=== PATIENT | male | born 1950 | race Two or more races ===

== ENCOUNTER 2018-12-30 20:31 | Inpatient (IN) | payer MEDICARE, MEDICAID ==
[~2018-12-30] VITALS: Ht 172.7 cm; Wt 77.6 kg
--- NOTE | 2018-12-30 20:33 | NUR ---
"[id number] FROM HOME FOR SEIZURE, 5MG VERSED GIVEN, [id number] " PT TO BED 6, PT ON MONITOR, VSS, NAD NOTED, PENDNG MD ROLON
[2018-12-30 20:57] LABS: BASOPHILS % (AUTO) 0.3 % (0.0-2.0); EOSINOPHILS % (AUTO) 0.9 % (0.0-6.0); HEMATOCRIT 42 % (39-51); HEMOGLOBIN 14.3 g/dL (13.5-17.5); LYMPHOCYTES # (AUTO) 0.9 /CMM (0.8-4.8); LYMPHOCYTES % (AUTO) 12.2 % (20.0-44.0); MEAN CORPUSCULAR HGB CONC 34 g/dl (31.0-36.0); MEAN CORPUSCULAR VOLUME 98 fL (80-96); MONOCYTES # (AUTO) 0.5 /CMM (0.1-1.30); MONOCYTES % (AUTO) 7.3 % (2.0-12.0); NEUTROPHILS # (AUTO) 5.8 /CMM (1.8-8.9); NEUTROPHILS % (AUTO) 79.3 % (43.0-81.0); PLATELET COUNT (AUTO) 153 /CMM (150-450); RED BLOOD CELL COUNT(AUTO) 4.26 MIL/uL (4.5-6.0); WHITE BLOOD COUNT (AUTO) 7.3 K/uL (4.3-11.0)
[2018-12-30 21:05] LABS: ALCOHOL, BLOOD < 3 mg/dL (0-0); CALCIUM, SERUM 8.3 mg/dL (8.5-10.1); CARBON DIOXIDE 26 mmol/L (21-32); CHLORIDE 102 mmol/L (98-107); CREATININE 0.9 mg/dL (0.6-1.3); GLUCOSE 135 mg/dL (74-106); SODIUM SERUM 138 mmol/L (136-145); UREA NITROGEN, BLOOD 22 mg/dL (7-18)
[2018-12-30 21:17] LABS: PHENYTOIN (DILANTIN) 10.8 ug/ml (10.0-20.0)
--- NOTE | 2018-12-30 22:05 | NUR ---
PAGED DR. DE LA ROSA
--- NOTE | 2018-12-30 22:22 | NUR ---
BED ASSIGNMENT: 326-1
[2018-12-30] MEDS ORDERED: ACETAMINOPHEN 325 MG TABLET PO PRN (23:00)
[2018-12-30] MEDS ORDERED: MAG HYDROX/AL HYDROX/SIMETH 30 ML UDC PO PRN (23:00)
[2018-12-30] MEDS ORDERED: ZOLPIDEM TARTRATE 5 MG TABLET PO PRN (23:00)
[2018-12-30] MEDS ORDERED: DEXTROSE 50%-WATER 50 ML DISP.SYRIN IV PRN (23:00)
[2018-12-30] MEDS ORDERED: MAGNESIUM HYDROXIDE 30 ML UDC PO PRN (23:00)
[2018-12-30] MEDS ORDERED: ONDANSETRON HCL/PF 4 MG/2 ML VIAL IVP PRN (23:00)
[2018-12-30] MEDS ORDERED: Z GUARD REMEDY 2 OZ OINT TP PRN (23:00)
--- NOTE | 2018-12-30 23:35 | NUR ---
RECEIVED PATIENT FROM ED VIA GURNEY IN STABLE CONDITION. PATIENT ASLEEP BUT EASY TO AROUSE VIA TACTILE AND VERBAL STIMULI. PATIENT ABLE TO VERBALIZED NEEDS HOWEVER DID NOT WANT TO ANSWER ADMISSION QUESTIONS AND STATED HE "JUST WANTED TO SLEEP." PERIPHERAL LINE INTACT AND PATENT. ASPIRATION AND SEIZURE PRECAUTIONS MAINTAINED. BED IN LOW LOCK SETTING. ROOM FREE OF CLUTTER AND BELONGINGS KEPT NEAR BEDSIDE. BED ALARM ON AND FUNCTIONING PROPERLY. WILL CONTINUE TO MONITOR
[2018-12-30 23:40] VITALS: BP 152/60
[2018-12-30] MEDS: IV NS 0.9% 1,000 ML IV PRN (23:59)
--- NOTE | 2018-12-31 | NUR ---
REPORT GIVEN TO STALIN DANGELO FOR AKASH; PT WILL BE TRANSPORTED TO 3RD FLOOR VIA [facility]
[2018-12-31] MEDS: PHENYTOIN EXTENDED RELEASE 100 MG CAPSULE PO SCH ×4 (00:39→21:05)
[2018-12-31] MEDS: LEVETIRACETAM (250 MG) 250 MG TABLET PO SCH ×3 (00:40→21:05)
[2018-12-31] MEDS: ENOXAPARIN SODIUM 40 MG/0.4 ML DISP.SYRIN SQ SCH ×2 (00:40→22:14)
[2018-12-31] MEDS: HYDROCODONE/APAP 5/325MG 1 EACH TABLET PO PRN ×3 (01:09→13:01)
--- NOTE | 2018-12-31 06:30 | NUR ---
CUFF SETTER NOTES PATIENT ASLEEP IN BED WITH NO DISTRESS NOTED. CALL LIGHT WITHIN REACH. ALL DUE MEDS GIVEN ORDERED WITH NO ASE NOTED. NO FURTHER C/O PAIN OR DISCOMFORT. PERIPHERAL LINE INTACT AND PATENT. SEIZURE AND ASPIRATION PRECAUTION OBSERVED AND MAINTAINED AT ALL TIMES. BED IN LOW LOCK SETTING. BED ALARM ON AND FUNCTIONING PROPERLY. WILL ENDORSE TO ONCOMING SHIFT.
[2018-12-31 06:46] LABS: BASOPHILS % (AUTO) 0.3 % (0.0-2.0); EOSINOPHILS % (AUTO) 1.3 % (0.0-6.0); HEMATOCRIT 45 % (39-51); LYMPHOCYTES # (AUTO) 1.8 /CMM (0.8-4.8); LYMPHOCYTES % (AUTO) 23.9 % (20.0-44.0); MEAN CORPUSCULAR HGB CONC 34 g/dl (31.0-36.0); MEAN CORPUSCULAR VOLUME 98 fL (80-96); MONOCYTES # (AUTO) 0.6 /CMM (0.1-1.30); MONOCYTES % (AUTO) 7.7 % (2.0-12.0); NEUTROPHILS # (AUTO) 5.1 /CMM (1.8-8.9); NEUTROPHILS % (AUTO) 66.8 % (43.0-81.0); PLATELET COUNT (AUTO) 158 /CMM (150-450); RED BLOOD CELL COUNT(AUTO) 4.56 MIL/uL (4.5-6.0); WHITE BLOOD COUNT (AUTO) 7.7 K/uL (4.3-11.0)
[2018-12-31 06:50] LABS: CALCIUM, SERUM 8.7 mg/dL (8.5-10.1); CREATININE 0.6 mg/dL (0.6-1.3); MAGNESIUM 1.5 mg/dL (1.8-2.4); PHOSPHORUS 3.6 mg/dL (2.5-4.9); POTASSIUM 3.7 mmol/L (3.5-5.1)
[2018-12-31] MEDS: BLOOD SUGAR DIAGNOSTIC 1 EACH STRIP IN SCH ×4 (07:31→21:05)
--- NOTE | 2018-12-31 07:35 | NUR ---
COVERED BUCKLE ASSEMBLER OPENING NOTES RECEIVED PT IN BED, AWAKE. A/O X2-3. TOLERATING RA, WITH NO ACUTE RESPIRATORY DISTRESS NOTED. ON TELEMONITORING SR WITH HR OF 85 WITH OCCASIONAL PACS. PT COMPLAINED OF PAIN RATED 9/10 AROUND THE NECK AND BACK DURING MORNING ROUNDS. PRN NORCO, GIVEN ORDERED. PER PT NORCO HELPED HIM LAST NIGHT BUT NOT MUCH; WILL CONTINUE TO MONITOR EFFECTIVENESS. IVF NS AT 75ML/HR TO RFA G20, INTACT AND FLUID INFUSING WELL. PT KEPT COMFORTABLE. CALL LIGHT KEPT WITHIN REACH. PT'S BED KEPT IN LOWEST LOCKED POSITION WITH SR X4. ON SEIZURE PRECAUTIONS; PADDED RAILS PRESENT. WILL CONTINUE PLAN OF CARE.
[2018-12-31 07:51] LABS: THYROID STIMULATING HORMONE 1.972 uIU/mL (0.358-3.74)
[2018-12-31] MEDS ORDERED: LEVETIRACETAM (250 MG) 250 MG TABLET PO ONE (09:30)
[2018-12-31 09:44] VITALS: BP 130/80
[2018-12-31] MEDS ORDERED: MORPHINE (09:50)
[2018-12-31] MEDS ORDERED: METOPROLOL TARTRATE (09:50)
[2018-12-31] MEDS ORDERED: GABAPENTIN (09:50)
[2018-12-31] MEDS ORDERED: PROTONIX (09:50)
[2018-12-31] MEDS ORDERED: KEPPRA (09:50)
[2018-12-31] MEDS ORDERED: DILANTIN (09:50)
[2018-12-31] MEDS ORDERED: LIPITOR (09:50)
[2018-12-31] MEDS ORDERED: TRAMADOL (09:50)
[2018-12-31] MEDS: Magnesium 1GM/D5W 100ML PREMIX 100 ML IV SCH ×2 (12:17→13:43)
--- NOTE | 2018-12-31 12:30 | NUR ---
MS RN NOTES PT HAD EEG ORDERED BY PEPPER PICKER/AR. NO PARTIAL RESULT PLACED ON THE CHART.
[2018-12-31 15:52] VITALS: BP 137/50
[2018-12-31] MEDS: IV NS 0.9% 1,000 ML IV PRN (16:32)
[2018-12-31] MEDS: HYDROCODONE/APAP 10/325MG 1 EA TABLET PO PRN (17:18)
[2018-12-31] MEDS: INSULIN REGULAR, HUMAN 100 UNIT/ML 3 ML VIAL SQ PRN ×2 (17:24→17:31)
--- NOTE | 2018-12-31 18:48 | NUR ---
MS RN CLOSING NOTES PT IN BED, AWAKE. A/O X2-3. TOLERATING RA, WITH NO ACUTE RESPIRATORY DISTRESS NOTED. PT DENIES ANY PAIN OR DISCOMFORT AT THIS MOMENT. IVF NS AT 75ML/HR TO RFA G20, INTACT AND FLUID INFUSING WELL. ALL NEEDS AND CARE ATTENDED. PT KEPT COMFORTABLE. CALL LIGHT KEPT WITHIN REACH. PT'S BED KEPT IN LOWEST LOCKED POSITION WITH SR X4. ON SEIZURE PRECAUTIONS; PADDED RAILS PRESENT. WILL ENDORSE TO INCOMING SHIFT NURSE FOR AKASH.
[2018-12-31] MEDS: LORAZEPAM INJ 2 MG/ML VIAL IV PRN (20:09)
[2018-12-31 20:17] VITALS: BP 139/81
--- NOTE | 2018-12-31 21:20 | NUR ---
MS RN NOTES RECEIVED PATIENT AWAKE A/O X3 IN BED WITH NO DISTRESS NOTED. CALL LIGHT WITHIN REACH. NO C/O PAIN OR DISCOMFORT. PERIPHERAL LINE INTACT AND PATENT. SEIZURE AND ASPIRATION PRECAUTION OBSERVED AND MAINTAINED AT ALL TIMES. ENCOURAGED USED OF CALL LIGHT AND VERBALIZED GOOD UNDERSTANDING. BED IN LOW LOCK SETTING. BED ALARM ON AND FUNCTIONING PROPERLY. WILL ENDORSE TO ONCOMING SHIFT.
[2019-01-01] MEDS: HYDROCODONE/APAP 10/325MG 1 EA TABLET PO PRN ×3 (00:10→21:11)
[2019-01-01] MEDS: LORAZEPAM INJ 2 MG/ML VIAL IV PRN ×4 (00:58→22:52)
[2019-01-01 02:24] LABS: APPEARANCE,URINE Clear (CLEAR); BILIRUBIN,URINE Negative (NEGATIVE); BLOOD, URINE Negative Ery/uL (NEGATIVE); COLOR,URINE Yellow (YELLOW); KETONES,URINE Negative (NEGATIVE); LEUKOCYTE ESTERASE ,URINE Negative (NEGATIVE); NITRITE, URINE Negative (NEGATIVE); PROTEIN,URINE 30 mg/dl (NEGATIVE); UGLUCOSE Negative (NEGATIVE); UROBILINOGEN,URINE 0.2 EU/dL (0.2)
[2019-01-01 02:30] LABS: BACTERIA,URINE None seen /HPF (None Seen); RBC,URINE 0-2 /HPF (0-2); SQUAMOUS EPITHELIAL CELL,UR Few /HPF (None Seen); WBC,URINE 0-2 /HPF (0-3)
[2019-01-01] MEDS: PHENYTOIN EXTENDED RELEASE 100 MG CAPSULE PO SCH ×3 (05:25→21:11)
[2019-01-01] MEDS: IV NS 0.9% 1,000 ML IV PRN (05:44)
--- NOTE | 2019-01-01 06:16 | NUR ---
MS RN NOTES PATIENT ASLEEP IN BED WITH NO DISTRESS NOTED. CALL LIGHT WITHIN REACH. ALL DUE MEDS GIVEN ORDERED WITH NO ASE. PERIPHERAL LINE INTACT AND PATENT. NO FURTHER C/O PAIN OR DISCOMFORT. SEIZURE PRECAUTIONS MAINTAINED AT ALL TIMES. ROOM FREE OF CLUTTER AND BELONGINGS KEPT NEAR BEDSIDE. BED IN LOW LOCK SETTING WITH BED ALARM ON AND FUNCTIONING PROPERLY. WILL ENDORSE TO ONCOMING SHIFT.
[2019-01-01 06:25] LABS: BASOPHILS % (AUTO) 0.3 % (0.0-2.0); EOSINOPHILS % (AUTO) 1.7 % (0.0-6.0); HEMATOCRIT 43 % (39-51); HEMOGLOBIN 14.6 g/dL (13.5-17.5); LYMPHOCYTES # (AUTO) 1.4 /CMM (0.8-4.8); MEAN CORPUSCULAR HGB CONC 34 g/dl (31.0-36.0); MEAN CORPUSCULAR VOLUME 98 fL (80-96); MONOCYTES # (AUTO) 0.5 /CMM (0.1-1.30); MONOCYTES % (AUTO) 8.6 % (2.0-12.0); NEUTROPHILS % (AUTO) 66.4 % (43.0-81.0); PLATELET COUNT (AUTO) 142 /CMM (150-450); RED BLOOD CELL COUNT(AUTO) 4.38 MIL/uL (4.5-6.0)
[2019-01-01] MEDS: BLOOD SUGAR DIAGNOSTIC 1 EACH STRIP IN SCH ×4 (06:33→21:20)
[2019-01-01 06:36] LABS: CALCIUM, SERUM 8.6 mg/dL (8.5-10.1); CREATININE 0.5 mg/dL (0.6-1.3); MAGNESIUM 1.6 mg/dL (1.8-2.4); POTASSIUM 3.5 mmol/L (3.5-5.1)
--- NOTE | 2019-01-01 07:20 | NUR ---
MS RN OPENING NOTES RECEIVED PT IN BED, ASLEEP, EASILY AROUSED. A/O X2-3. TOLERATING RA, WITH NO ACUTE RESPIRATORY DISTRESS NOTED. PT DENIES ANY PAIN OR DISCOMFORT AT THIS MOMENT. IVF NS AT 75ML/HR TO RFA G20, INTACT AND FLUID INFUSING WELL. PT KEPT COMFORTABLE. CALL LIGHT KEPT WITHIN REACH. PT'S BED KEPT IN LOWEST LOCKED POSITION WITH SR X4. ON SEIZURE PRECAUTIONS; PADDED RAILS PRESENT. WILL CONTINUE PLAN OF CARE.
[2019-01-01 08:00] VITALS: BP 140/104
[2019-01-01] MEDS ORDERED: LEVE250T2 PO (08:12)
[2019-01-01] MEDS ORDERED: PHEN100C4 PO (08:12)
[2019-01-01] MEDS: Magnesium 1GM/D5W 100ML PREMIX 100 ML IV SCH ×2 (08:12→09:16)
[2019-01-01] MEDS: LEVETIRACETAM (250 MG) 250 MG TABLET PO SCH ×2 (08:12→21:11)
--- NOTE | 2019-01-01 08:52 | NUR ---
MS RN NOTES PT SEEN BY MD/SK AND GAVE PRESCRIPTION FOR KEPPRA AND DILANTIN. IN MD'S PERSPECTIVE PT CAN BE DISCHARGE BACK TO [facility] JUST AWAITING FOR NEUROLOGY CLEARANCE. PT AWARE OF PLANS. CM NOTIFIED.
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
[2019-01-01] MEDS: CLOTRIMAZOLE 1% 15 GM TUBE TP SCH ×2 (10:13→16:17)
[2019-01-01] MEDS: INSULIN REGULAR, HUMAN 100 UNIT/ML 3 ML VIAL SQ PRN ×2 (11:29→21:23)
[2019-01-01] MEDS: HYDROCODONE/APAP 5/325MG 1 EACH TABLET PO PRN (13:38)
[2019-01-01 16:00] VITALS: BP 155/88
--- NOTE | 2019-01-01 19:19 | NUR ---
MS RN CLOSING NOTES PT IN BED, ASLEEP, EASILY AROUSED. A/O X2-3. TOLERATING RA, WITH NO ACUTE RESPIRATORY DISTRESS NOTED. PT DENIES ANY PAIN OR DISCOMFORT AT THIS MOMENT. IVF NS AT 75ML/HR TO RFA G20, INTACT AND FLUID INFUSING WELL. ALL NEEDS AND CARE ATTENDED. PT KEPT COMFORTABLE. CALL LIGHT KEPT WITHIN REACH. PT'S BED KEPT IN LOWEST LOCKED POSITION WITH SR X4. ON SEIZURE PRECAUTIONS; PADDED RAILS PRESENT. ENDORSED TO VOCATIONAL COUNSELOR NURSE FOR AKASH.
--- NOTE | 2019-01-01 19:30 | NUR ---
RECEIVED PATIENT IN BED AWAKE. AO X 3, ABLE TO MAKE NEEDS KNOWN. NO ACUTE DISTRESS NOTED. MONITORED FOR PAIN. IV LINE PATENT, INTACT; IVF INFUSING ORDERED. SAFETY REMINDERS GIVEN. SEIZURE PRECAUTIONS IN PLACE. ON LOW BED WITH BILATERAL UPPER SIDE RAILS UP. CALL WOODSON WITHIN EASY REACH.
[2019-01-01 20:00] VITALS: BP 140/95
[2019-01-01] MEDS: ENOXAPARIN SODIUM 40 MG/0.4 ML DISP.SYRIN SQ SCH (22:55)
--- NOTE | 2019-01-02 | NUR ---
PATIENT SLEEPING INTERMITTENTLY. BRP WITH ASSIST. WILL CONTINUE TO MONITOR.
[2019-01-02] MEDS: IV NS 0.9% 1,000 ML IV PRN (04:50)
[2019-01-02] MEDS: PHENYTOIN EXTENDED RELEASE 100 MG CAPSULE PO SCH ×2 (04:51→12:18)
--- NOTE | 2019-01-02 06:00 | NUR ---
PATIENT ASLEEP, EASILY AROUSABLE. RESPIRATIONS EVEN. NO SIGNS OF PAIN NOTED. NO SEIZURE ACTIVITY THIS SHIFT. DUE MEDS GIVEN WITH NO ASE NOTED. NEEDS ATTENDED. ASSISTED TO THE BATHROOM NEEDED. SAFETY PRECAUTIONS AND COMFORT MEASURES IN PLACE. WILL GIVE REPORT TO DAY SHIFT FOR CONTINUITY OF CARE.
[2019-01-02] MEDS: BLOOD SUGAR DIAGNOSTIC 1 EACH STRIP IN SCH ×2 (06:44→11:57)
[2019-01-02 06:54] LABS: BASOPHILS % (AUTO) 0.2 % (0.0-2.0); EOSINOPHILS % (AUTO) 1.8 % (0.0-6.0); HEMATOCRIT 43 % (39-51); HEMOGLOBIN 14.6 g/dL (13.5-17.5); LYMPHOCYTES # (AUTO) 1.5 /CMM (0.8-4.8); LYMPHOCYTES % (AUTO) 20.1 % (20.0-44.0); MEAN CORPUSCULAR HGB CONC 34 g/dl (31.0-36.0); MEAN CORPUSCULAR VOLUME 98 fL (80-96); MONOCYTES # (AUTO) 0.5 /CMM (0.1-1.30); MONOCYTES % (AUTO) 7.2 % (2.0-12.0); NEUTROPHILS # (AUTO) 5.1 /CMM (1.8-8.9); NEUTROPHILS % (AUTO) 70.7 % (43.0-81.0); PLATELET COUNT (AUTO) 148 /CMM (150-450); WHITE BLOOD COUNT (AUTO) 7.3 K/uL (4.3-11.0)
[2019-01-02 07:15] LABS: CALCIUM, SERUM 8.4 mg/dL (8.5-10.1); CREATININE 0.6 mg/dL (0.6-1.3); MAGNESIUM 1.5 mg/dL (1.8-2.4); PHOSPHORUS 3.4 mg/dL (2.5-4.9); POTASSIUM 3.9 mmol/L (3.5-5.1)
--- NOTE | 2019-01-02 07:34 | NUR ---
RN OPENING NOTE PT WAS RECEIVED ASLEEP IN BED AT LOWEST AND LOCKED POSITION WITH SIDE RAILS UPX2, A/O X3 BREATHING EVEN AND UNLABORED ON RA WITH NO S/S OF ANY DISTRESS OR PAIN NOTED AT THIS TIME, IV IS PATENT AND INTACT, SAFETY PRECAUTIONS IN PLACE, CALL LIGHT WITHIN REACH, WILL MONITOR PT ACCORDINGLY
[2019-01-02 08:00] VITALS: BP 130/94
[2019-01-02] MEDS: CLOTRIMAZOLE 1% 15 GM TUBE TP SCH ×2 (08:18→16:17)
[2019-01-02] MEDS: LEVETIRACETAM (250 MG) 250 MG TABLET PO SCH (08:18)
[2019-01-02] MEDS: HYDROCODONE/APAP 5/325MG 1 EACH TABLET PO PRN ×2 (08:53→15:15)
[2019-01-02] MEDS: Magnesium 1GM/D5W 100ML PREMIX 100 ML IV SCH ×2 (10:45→11:34)
[2019-01-02] MEDS: HYDROCODONE/APAP 10/325MG 1 EA TABLET PO PRN (11:55)
[2019-01-02] MEDS: INSULIN REGULAR, HUMAN 100 UNIT/ML 3 ML VIAL SQ PRN (11:56)
--- NOTE | 2019-01-02 15:18 | NUR ---
RN NOTE ATTEMPTED TO TAKE PHOTOS OF PT SKIN AT THIS TIME BUT HE REFUSED SAYING HE IS IN TO MUCH PAIN, PRN NORCO 5 GIVEN, WILL ATTEMPT AGAIN LATER
--- NOTE | 2019-01-02 15:50 | NUR ---
RN NOTE ATTEMPTED TO TRY AND TAKE PHOTOS OF PT SKIN AGAIN AT THIS TIME BUT HE REFUSED, HE STATED HIS PAIN IS NOT BAD BEFORE BUT HE DOES NOT WANT TO TURN FOR THE PHOTOS SINCE HE IS COMFORTABLE HOW HE IS CURRENTLY POSITIONED
--- NOTE | 2019-01-02 16:11 | NUR ---
RN NOTE REPORT GIVEN TO RAFI AT [facility] AT THIS TIME
--- NOTE | 2019-01-02 17:29 | NUR ---
DISCHARGE NOTE PT WAS D/C AT THIS TIME IN MEDICALLY STABLE CONDITION TO [facility] WITH REPORT GIVEN TO RAFI AT THE FACILITY. IV AND ID BAND WERE REMOVED. ALL EXITCARE, D/C PAPERWORK, AND BELONGING LIST WERE SIGNED, DISCUSSED, AND HANDED TO THE PATIENT AND EMT CREW. PRESCRIPTION WAS GIVEN TO THE PATIENT WELL. AL BELONGINGS WERE TAKEN BY THE PATIENT. PT REFUSED FOR PHOTOS TO BE TAKEN. ALL NEEDS WERE ATTENDED TO DURING HIS STAY. PT LEFT AT THIS TIME IN MEDICALLY STABLE CONDITION.
== END 2019-01-02 17:30 | DRG 101 ==
LOC: ER 20:32 → MED 22:33 → TELE 23:01 → MED 12-31 11:41
PROVIDERS: ATTEND Student in an Organized Health Care Education/Training Program
DX: G40.909 Epilepsy, unspecified, not intractable, without status epilepticus (principal); E83.52 Hypercalcemia; I10 Essential (primary) hypertension; E11.9 Type 2 diabetes mellitus without complications
CPT/HCPCS: 36415; 70450-TC; 71045-TC; 80048-TC; 80061-TC; 80185-TC; 80305; 81000-TC; 82962-TC; 83735-TC; 84100-TC; 84443-TC; 85025-TC; 87081-TC; 95819-TC; 97110-TC; 97116-TC; 97530-TC; A4349; G0378; G0480; J1650; J1815; J2060; J3475; J7030

== ENCOUNTER 2019-04-12 13:20 | Emergency (ER) | payer MEDICARE, OTHER ==
[~2019-04-12] VITALS: Ht 165.1 cm; Wt 81.6 kg
[~2019-04-12 13:20] MED LIST: DILANTIN; GABAPENTIN; KEPPRA; LEVE250T2 PO; LIPITOR; METOPROLOL TARTRATE; MORPHINE; PHEN100C4 PO; PROTONIX; TRAMADOL
--- NOTE | 2019-04-12 13:35 | NUR ---
LYNNETTE RA 89 [facility]"Was called for ?Seizure like activity but seemed like he was having tremors. Also c/o pain [id number], PT AWAKE, ALERT, -SOB, NAD NOTED, PT ON MONITOR, VSS ,PENDING MD ROLON
[2019-04-12] MEDS ORDERED: MORPHINE SULFATE INJ 4 MG/ML DISP.SYRIN ONE ×2 (14:59→23:37)
[2019-04-12 15:00] LABS: BASOPHILS % (AUTO) 0.3 % (0.0-2.0); EOSINOPHILS % (AUTO) 0.7 % (0.0-6.0); HEMATOCRIT 43 % (39-51); HEMOGLOBIN 14.2 g/dL (13.5-17.5); LYMPHOCYTES # (AUTO) 1.4 /CMM (0.8-4.8); LYMPHOCYTES % (AUTO) 22.1 % (20.0-44.0); MEAN CORPUSCULAR HGB CONC 33 g/dl (31.0-36.0); MEAN CORPUSCULAR VOLUME 99 fL (80-96); MONOCYTES # (AUTO) 0.4 /CMM (0.1-1.30); MONOCYTES % (AUTO) 6.7 % (2.0-12.0); NEUTROPHILS # (AUTO) 4.4 /CMM (1.8-8.9); NEUTROPHILS % (AUTO) 70.2 % (43.0-81.0); PLATELET COUNT (AUTO) 167 /CMM (150-450); RED BLOOD CELL COUNT(AUTO) 4.31 MIL/uL (4.5-6.0); WHITE BLOOD COUNT (AUTO) 6.2 K/uL (4.3-11.0)
[2019-04-12] MEDS ORDERED: MORPHINE SULFATE INJ 2 MG/ML DISP.SYRIN IV ONE (15:00)
[2019-04-12] MEDS ORDERED: IV NS 0.9% 1,000 ML BAG IV ONE (15:00)
[2019-04-12 15:11] LABS: CALCIUM, SERUM 8.8 mg/dL (8.5-10.1); CARBON DIOXIDE 27 mmol/L (21-32); CHLORIDE 107 mmol/L (98-107); CREATININE 0.8 mg/dL (0.6-1.3); GLUCOSE 115 mg/dL (74-106); POTASSIUM 4.5 mmol/L (3.5-5.1); SODIUM SERUM 142 mmol/L (136-145); UREA NITROGEN, BLOOD 16 mg/dL (7-18)
--- NOTE | 2019-04-12 15:11 | NUR ---
BLADDER SCAN PER DR. PETERSON ORDERS, >200ML
[2019-04-12 15:17] LABS: ALANINE AMINOTRANSFERASE 165 U/L (12-78); ALBUMIN 2.9 g/dL (3.4-5.0); ALKALINE PHOSPHATASE 162 U/L (46-116); ASPARTATE AMINOTRANSFERASE 90 U/L (15-37); BILIRUBIN,DIRECT 0.1 mg/dL (0.0-0.2); BILIRUBIN,TOTAL 0.4 mg/dL (0.2-1.0); LIPASE 93 U/L (73-393); TOTAL PROTEIN, SERUM 6.5 g/dL (6.4-8.2)
[2019-04-12] MEDS ORDERED: IOHEXOL-300 100 ML VIAL IV ONE (15:26)
[2019-04-12 16:02] LABS: APPEARANCE,URINE Clear (CLEAR); BILIRUBIN,URINE Negative (NEGATIVE); BLOOD, URINE Negative Ery/uL (NEGATIVE); COLOR,URINE Yellow (YELLOW); KETONES,URINE Negative (NEGATIVE); LEUKOCYTE ESTERASE ,URINE Negative (NEGATIVE); NITRITE, URINE Negative (NEGATIVE); PH,URINE 6.5 (5.0-8.0); PROTEIN,URINE 100 mg/dl (NEGATIVE); UGLUCOSE Negative (NEGATIVE)
[2019-04-12] MEDS ORDERED: KETOROLAC TROMETHAMINE 15 MG/ML VIAL ONE (17:07)
[2019-04-12] MEDS ORDERED: KETOROLAC TROMETHAMINE INJ 30 MG/ML VIAL IV ONE (17:30)
[2019-04-12] MEDS ORDERED: TRAMADOL HCL 50 MG TABLET PO ONE (19:00)
[2019-04-12] MEDS ORDERED: HYDROMORPHONE 1 MG/1 ML DISP.SYRIN ONE (19:41)
[2019-04-12] MEDS ORDERED: LORAZEPAM 1 MG TABLET ONE (19:41)
[2019-04-12] MEDS ORDERED: LORAZEPAM 1 MG TABLET PO ONE (20:00)
[2019-04-12] MEDS ORDERED: HYDROMORPHONE 1 MG/1 ML DISP.SYRIN IV ONE (20:00)
--- NOTE | 2019-04-12 21:48 | NUR ---
[facility] ETA [phone]
[2019-04-12 23:53] VITALS: BP 156/94
--- NOTE | 2019-04-12 23:56 | NUR ---
DUPLICATE ORDER FOR MORPHINE D/C'ED, ENTERED NEW ONE T.O PER DR. SAINZ. MORPHINE 4MG IVP GIVEN
[2019-04-13] MEDS ORDERED: MORPHINE SULFATE INJ 2 MG/ML DISP.SYRIN IV ONE ×2
== END 2019-04-12 23:54 | disposition home or self-care (01) ==
LOC: ER 13:21
DX: M54.5 Low back pain (principal); G89.29 Other chronic pain; I10 Essential (primary) hypertension; E11.9 Type 2 diabetes mellitus without complications; R56.9 Unspecified convulsions; Z95.5 Presence of coronary angioplasty implant and graft; Z79.899 Other long term (current) drug therapy
CPT/HCPCS: 36415; 71045; 74177; 76870; 80048; 80076; 80185; 81001; 83690; 84484; 85025; 85730; 96374; 96375; 96376; 99284; J1170; J1885; J2270 ×2; J7030; Q9967; 81000-TC

== ENCOUNTER 2022-06-20 10:07 | Emergency (ER) | payer MEDICARE, OTHER ==
[~2022-06-20] VITALS: Ht 172.7 cm; Wt 83.9 kg
[2022-06-20] MEDS ORDERED: IV NS 0.9% 1,000 ML BAG IV ONE (10:30)
[2022-06-20] MEDS ORDERED: ACETAMINOPHEN ES 500 MG TABLET PO ONE (10:30)
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
[2022-06-20] MEDS ORDERED: ACETAMINOPHEN ES 500 MG TABLET ONE (10:37)
--- NOTE | 2022-06-20 10:42 | NUR ---
IV ESTABLISHED R HAND 20G. LABS DRAWN AND COLLECTED AT BEDSIDE
--- NOTE | 2022-06-20 10:48 | NUR ---
PT TAKEN TO CT VIA [facility]
[2022-06-20 11:04] LABS: BASOPHILS % (AUTO) 0.1 % (0.0-2.0); EOSINOPHILS % (AUTO) 1.2 % (0.0-6.0); HEMATOCRIT 39 % (39-51); HEMOGLOBIN 13.1 g/dL (13.5-17.5); LYMPHOCYTES # (AUTO) 0.6 K/uL (0.8-4.8); LYMPHOCYTES % (AUTO) 7.3 % (20.0-44.0); MEAN CORPUSCULAR HGB CONC 33 g/dl (31.0-36.0); MEAN CORPUSCULAR VOLUME 95 fL (80-96); MONOCYTES # (AUTO) 1.1 K/uL (0.1-1.30); MONOCYTES % (AUTO) 12.4 % (2.0-12.0); NEUTROPHILS # (AUTO) 6.8 K/uL (1.8-8.9); PLATELET COUNT (AUTO) 191 K/uL (150-450); RED BLOOD CELL COUNT(AUTO) 4.13 MIL/uL (4.5-6.0); WHITE BLOOD COUNT (AUTO) 8.6 K/uL (4.3-11.0)
[2022-06-20 11:35] LABS: ALANINE AMINOTRANSFERASE 63 U/L (12-78); ALBUMIN 2.5 g/dL (3.4-5.0); ALKALINE PHOSPHATASE 137 U/L (46-116); ASPARTATE AMINOTRANSFERASE 39 U/L (15-37); BILIRUBIN,DIRECT 0.1 mg/dL (0.0-0.2); BILIRUBIN,TOTAL 0.4 mg/dL (0.2-1.0); CALCIUM, SERUM 8.4 mg/dL (8.5-10.1); CARBON DIOXIDE 28 mmol/L (21-32); CHLORIDE 103 mmol/L (98-107); CREATININE 0.7 mg/dL (0.6-1.3); GLUCOSE 176 mg/dL (74-106); POTASSIUM 4.7 mmol/L (3.5-5.1); SODIUM SERUM 137 mmol/L (136-145); TOTAL PROTEIN, SERUM 6.8 g/dL (6.4-8.2); UREA NITROGEN, BLOOD 15 mg/dL (7-18)
[2022-06-20 12:00] VITALS: BP 128/75
[2022-06-20] MEDS ORDERED: NAPR-1009 PO (13:56)
[2022-06-20] MEDS ORDERED: AZIT250T13 PO (13:57)
[2022-06-20] MEDS ORDERED: AMOX-430 PO (13:57)
--- NOTE | 2022-06-20 14:13 | NUR ---
[facility] R CALLED, SPOKE WITH RAMON IN ADMISSIONS, WARNED HER THAT PATIENT IS A FALL RISK AND VERIFIED IF THEY CAN TAKE CARE OF HIM. SHE SAID THEY CAN TAKE CARE OF HIM,DR NOLASCO INFORMED.
--- NOTE | 2022-06-20 15:09 | NUR ---
CALLED [facility] AND SET UP S TRANSPORT ETA [id number]
--- NOTE | 2022-06-20 16:19 | NUR ---
emt arrived, report given, pt transported to facility in stable condition.
== END 2022-06-20 16:21 | disposition home or self-care (01) ==
LOC: ER 10:13
DX: S63.501A Unspecified sprain of right wrist, initial encounter (principal); J18.9 Pneumonia, unspecified organism; M54.50 Low back pain, unspecified; G40.909 Epilepsy, unspecified, not intractable, without status epilepticus; E11.40 Type 2 diabetes mellitus with diabetic neuropathy, unspecified; I10 Essential (primary) hypertension; E78.5 Hyperlipidemia, unspecified; G89.29 Other chronic pain; Z79.899 Other long term (current) drug therapy; W18.30XA Fall on same level, unspecified, initial encounter; Y93.89 Activity, other specified; Y92.89 Other specified places as the place of occurrence of the external cause; Y99.8 Other external cause status
CPT/HCPCS: 99285; 96360; 70450; 71045; 29260; 93005; 72170; 73130; 73110; 85025; 80048; 80076; 36415; 84484; J7030

== ENCOUNTER 2023-03-15 13:39 | Emergency (ER) | payer MEDICARE, OTHER ==
[~2023-03-15] VITALS: Ht 167.6 cm; Wt 83.9 kg
[~2023-03-15 13:39] MED LIST changes: +AMOX-430 PO; +AZIT250T13 PO; +NAPR-1009 PO
[2023-03-15] MEDS ORDERED: ACETAMINOPHEN ES 500 MG TABLET PO ONE (14:30)
[2023-03-15] MEDS ORDERED: ACETAMINOPHEN ES 500 MG TABLET ONE (14:48)
[2023-03-15 16:28] VITALS: BP 120/69; TEMP 98.1; O2SAT 99
== END 2023-03-15 16:41 ==
LOC: ER 13:39
DX: M79.602 Pain in left arm (principal); I10 Essential (primary) hypertension; E78.5 Hyperlipidemia, unspecified; E11.9 Type 2 diabetes mellitus without complications; G89.29 Other chronic pain; W01.0XXA Fall on same level from slipping, tripping and stumbling without subsequent striking against object, initial encounter; Y93.89 Activity, other specified; Y92.89 Other specified places as the place of occurrence of the external cause; Y99.8 Other external cause status
CPT/HCPCS: 73060-TC